=== PATIENT | female | born 1980 | race Caucasian/White ===

== ENCOUNTER 2020-03-18 13:41 | Outpatient (CLI) | payer OTHER ==
[2020-03-18] MEDS ORDERED: GADOBUTROL 10 MMOL/10 ML VIAL ONE (14:58)
--- NOTE | 2020-03-18 17:15 | MRI Report ---
PROCEDURE: Knee RT W/WO INDICATIONS: CHRONIC CYST RT KNEE CONTRAST: IV CONTRAST: Gadavist ml: 9 TECHNIQUE: Noncontrast sagittal PD fast spin echo and T2 fast spin echo with fat saturation, sagittal 3-D spoile d GE with fat saturation; coronal T1 spin echo and PD fast spin echo with fat saturation, and axial T 1 spin echo and PD fast spin echo with fat saturation through the knee. Post-contrast axial, coronal , and sagittal T1 spin echo with fat saturation through the knee. COMPARISON: None. FINDINGS: Image quality: Excellent. Menisci: The medial and lateral menisci demonstrate normal morphology and internal signal. The meni scal root ligaments appear intact. Cruciate ligaments: The anterior and posterior cruciate ligaments appear intact. Medial structures: The medial collateral ligament appears intact. The posterior oblique ligament, s emimembranosus tendon insertions, and oblique popliteal ligament, and meniscocapsular junction appear intact. Visualized portions of the pes anserinus tendons appear normal. No abnormal bursal fluid. Lateral structures: The lateral collateral ligament, long and short heads of the biceps femoris tend on appear intact. The popliteus tendon appears normal; the popliteofibular ligament appears intact. The posterosuperior and anteroinferior popliteomeniscal fascicles appear intact. The arcuate and fa bellofibular ligaments appear intact, around the lateral inferior geniculate artery. Iliotibial band appears normal. Anterior structures: There is a 5.3 x 3.9 x 5.9 cm slightly lobulated and heterogeneously T2 hyperin tense and T1 hypointense structure with extensive internal T1 and T2 hypointense signal involving ant eromedial right knee soft tissue and is superficial to the medial patellar retinaculum. After IV cont rast infusion, no definite internal contrast enhancement is noted. The quadriceps and patellar tendon s appear intact. Patellar alignment is normal. No femoral trochlear dysplasia or ventral trochlear prominence. No edema in the infrapatellar fat pad. Bones and cartilage: No suspicious osseous enhancement. No bone marrow contusions or fractures. Th e cartilage of the medial and lateral femorotibial compartments, as well as the patellofemoral compar tment, appears normal in thickness. Joint space: There is physiologic knee joint fluid. No Woods?s cyst. Normal appearing synovial pli are incidentally noted. No suspicious soft tissue enhancement. IMPRESSION: 1. 5.3 x 3.9 x 5.9 cm slightly lobulated and heterogeneously T2 hyperintense and T1 hypointense struc ture involving soft tissue along the anteromedial right knee superficial to the medial patellar retin aculum and show no definite internal enhancement. Internal T1 and T2 hypointense signal is seen. Find ing may represent a large hemorrhagic cyst in this area. Cystic neoplasm cannot be entirely excluded. Consider excision of this lesion for more definitive diagnosis. 2. No marrow signal abnormality. No acute fracture or dislocation. No abnormal intraosseous enhanceme nt. 3. Cruciate ligaments are intact. 4. No evidence of focal meniscal tear. 5. Medial and lateral patellar retinaculum are intact. Medial and lateral collateral ligaments are in tact. Reviewed by: Mauri Alberto MD on 03/18/2020 5:14 PM PDT Approved by: Mauri Alberto MD on 03/18/2020 5:14 PM PDT Station ID: [id number]
== END 2020-03-18 13:42 | disposition home or self-care (01) ==
LOC: DI 13:41
DX: R93.6 Abnormal findings on diagnostic imaging of limbs (principal); R93.89 Abnormal findings on diagnostic imaging of other specified body structures
CPT/HCPCS: 73723; A9585

== ENCOUNTER 2020-03-20 17:47 | Emergency (ER) | payer OTHER ==
[2020-03-20] MEDS ORDERED: BUFFERED LIDOCAINE 10 ML SYRINGE SUBQ STA (17:57)
--- NOTE | 2020-03-20 17:58 | ED Physician Documentation ---
PD HPI WOUND RECHECK - Stated complaint Stated Complaint: RT KNEE DRAINING - Chief complaint Chief Complaint: Wound - Histroy obtained from History obtained from: Patient - Additional information Additional information: She is had a lump on her knee since she was a little girl. More recently her dog knocked it and became inflamed. Had an MRI done a couple of days ago showing cystic structure of unclear etiology. Now it is draining cottage cheesy fluid. Review of Systems Constitutional: reports: Reviewed and negative Throat: reports: Reviewed and negative Respiratory: reports: Reviewed and negative PD PAST MEDICAL HISTORY - Present Medications Home Medications: Ambulatory Orders Medication Instructions Recorded Confirmed Cephalexin [Keflex] 500 mg PO Q6H #20 capsule 03/20/20 - Allergies Allergies/Adverse Reactions: Allergies Allergy/AdvReac Type Severity Reaction Status Date / Time azithromycin [From Zithromax] Allergy Hives Verified 03/20/20 17:50 PD ED PE NORMAL - Vitals Vital signs reviewed: Yes - General General: Alert and oriented X 3, No acute distress - Extremities Extremities: Other (There is a large pointed cyst on the anteromedial right knee) - Neuro Neuro: Alert and oriented X 3, Normal speech Results - Vitals Vitals: Vital Signs - 24 hr 03/20/20 03/20/20 17:50 18:09 Temperature 36.4 C L Heart Rate 90 93 Respiratory 16 16 Rate Blood Pressure 126/85 H 137/96 H O2 Saturation 100 100 Oxygen O2 Source Room air Procedures - Abscess I&D (location) R knee secbaceous cyst Preparation: Chlorhexadine, Lidocaine 1% Incision: Incised with scalpel, Purulent drainage, Culture obtained. No: Packed Other: Pt tolerated well, Dressing applied, Antibiotic prescribed PD MEDICAL DECISION MAKING - ED course ED course: The history and description and MRI findings and physical findings suggest that this is a large sebaceous cyst that has become infected. An incision and drainage was done and a very large amount of sebaceous material was drained. Departure - Departure Disposition: 01 Home, Self Care Clinical Impression: Sebaceous cyst Condition: Good Record reviewed to determine appropriate education?: Yes Instructions: ED Cyst Sebaceous Infec IandD Prescriptions: Cephalexin [Keflex] 500 mg PO Q6H #20 capsule Comments: Examination of the contents suggest that this is a sebaceous cyst. [place] you to a general or orthopedic surgeon for definitive excision.
[2020-03-20 18:10] VITALS: BP 137/96
[2020-03-20] MEDS ORDERED: cephALEXin 250 MG CAPSULE PO STA (18:14)
== END 2020-03-20 18:36 | disposition home or self-care (01) ==
LOC: ED 17:47
DX: L72.3 Sebaceous cyst (principal)
CPT/HCPCS: 10060; 87070; 87077; 87181; 87205; 99283; A9270

== ENCOUNTER 2020-06-25 19:51 | Outpatient (CLI) | payer OTHER | END 2020-06-25 19:52 | disposition home or self-care (01) | LOC: COV 19:51 | PROVIDERS: ATTEND Surgery | DX: Z01.812 Encounter for preprocedural laboratory examination (principal); Z20.822 Contact with and (suspected) exposure to COVID-19; L72.0 Epidermal cyst ==

== ENCOUNTER 2020-06-29 08:22 | Day surgery (SDC) | payer OTHER ==
[2020-06-29 08:44] LABS: HCG UR QUAL NEGATIVE
[2020-06-29] MEDS ORDERED: ceFAZolin 2 GM/50 ML 2 GM/50 ML BAG IV ONE (08:49)
[2020-06-29] MEDS ORDERED: LACTATED RINGERS 1,000 ML IV ONE ×2 (09:00→11:16)
--- NOTE | 2020-06-29 09:17 | ANESTHESIA ---
Pre-Anesthesia VS, & Labs - Diagnosis right knee cyst - Procedure excision right knee cyst Vital Signs: Temp Pulse Resp BP Pulse Ox 36 C L 88 18 158/108 H 99 06/29/20 08:42 06/29/20 08:42 06/29/20 08:42 06/29/20 08:42 06/29/20 08:42 Height: 5 ft 4 in Weight (kg): 92 kg Body Mass Index: 34.8 BMI Classification: Obese - NPO >8 hours - Is Patient ?: No Home Medications and Allergies Home Medications: Ambulatory Orders Atorvastatin [Lipitor] 40 mg PO DAILY 06/21/20 Esomeprazole Magnesium [Nexium] 20 mg PO DAILY 06/21/20 Metformin HCl [Glucophage] 1,000 mg PO BID 06/21/20 Telmisartan [Micardis] 40 mg PO DAILY 06/21/20 Atorvastatin [Lipitor] 40 mg PO DAILY 06/21/20 Esomeprazole Magnesium [Nexium] 20 mg PO DAILY 06/21/20 Metformin HCl [Glucophage] 1,000 mg PO BID 06/21/20 Telmisartan [Micardis] 40 mg PO DAILY 06/21/20 Allergies/Adverse Reactions: Allergies Allergy/AdvReac Type Severity Reaction Status Date / Time azithromycin [From Zithromax] Allergy Hives Verified 03/20/20 17:50 Anes History & Medical History - Anesthetic History Family history of Anesthesia Complications: Denies Family history of Malignant Hyperthermia: Denies - Medical History Cardiovascular: reports: Hypertension, High cholesterol Pulmonary: reports: Sleep apnea Gastrointestinal: reports: GERD, Ulcers Urinary: reports: None Neuro: reports: None Musculoskeletal: reports: None Endocrine/Autoimmune: reports: Type 2 diabetes Skin: reports: Psoriasis Smoking Status: Current every day smoker (vapes daily) History of Cancer?: No - Surgical History Eyes Ears Nose Throat (EENT): Cataracts Gynecologic: section Exam General: Alert Dental: WNL Mouth Openin Fingerbreadth Neck Mobility: Normal Mallampati classification: III Thyromental Distance: 4-6 cm Respiratory: Lungs clear Cardiovascular: Regular rate Abdomen: Normal bowel sounds Extremities: No clubbing Neurological: Normal gait Mental/Cognitive Status: Alert/Oriented X3 Cognitive Status: Within normal limits Plan Anesthesia Type: General, MAC Consent for Procedure(s) Verified and Reviewed: Yes Code Status: Attempt Resuscitation ASA classification: 2-Mild systemic disease Is this case an emergency?: No
[2020-06-29] MEDS ORDERED: NALOXONE 0.4 MG/ML VIAL IVP PRN (09:56)
[2020-06-29] MEDS ORDERED: fentaNYL 100 MCG/2 ML VIAL IVP PRN (09:56)
[2020-06-29] MEDS ORDERED: ALBUTEROL NEB 2.5 MG/3 ML INH PRN (09:56)
[2020-06-29] MEDS ORDERED: ONDANSETRON 4 MG/2 ML VIAL IVP PRN (09:56)
[2020-06-29] MEDS ORDERED: ePHEDrine 50 MG/ML VIAL IVP PRN (09:56)
[2020-06-29] MEDS ORDERED: diphenhydrAMINE INJ 50 MG/ML VIAL IVP PRN (09:56)
[2020-06-29] MEDS ORDERED: HYDROmorphone 0.5 MG/0.5 ML SYRINGE IVP PRN (09:56)
[2020-06-29] MEDS ORDERED: MORPHINE 2 MG/ML CARPUJECT IVP PRN (09:56)
[2020-06-29] MEDS ORDERED: ATROPINE ABBOJECT 1 MG/10 ML SYRINGE IVP PRN (09:56)
[2020-06-29] MEDS ORDERED: LACTATED RINGERS 1,000 ML IV SCH (10:00)
[2020-06-29] MEDS ORDERED: BUPIVACAINE 0.25% PF 30 ML VIAL ONE (10:17)
[2020-06-29] MEDS ORDERED: LIDOCAINE 1% 50 ML MDV ONE (10:17)
[2020-06-29] MEDS ORDERED: PROPOFOL 200 MG/20 ML VIAL IVP ONE (10:21)
[2020-06-29] MEDS ORDERED: MIDAZOLAM 2 MG/2 ML VIAL ONE (10:21)
[2020-06-29] MEDS ORDERED: LIDOCAINE-MPF 2% 5 ML VIAL ONE (10:21)
[2020-06-29] MEDS ORDERED: fentaNYL 100 MCG/2 ML VIAL ONE ×2 (10:21→11:02)
--- NOTE | 2020-06-29 10:23 | HISTORY & PHYSICAL EXAMINATION ---
Chief Complaint - Chief Complaint Chief Complaint: right knee cyst History of Present Illness - History of Present Illness HPI Comment/Other: right knee cyst for many years with recent rupture and inflammation. Currently improved History - Past Medical History Cardiovascular: reports: Hypertension, High cholesterol Respiratory: reports: Sleep apnea Neuro: reports: None Endocrine/Autoimmune: reports: Type 2 diabetes GI: reports: GERD, Ulcers : reports: None HEENT: reports: None Psych: reports: Depression Musculoskeletal: reports: None Derm: reports: Psoriasis MRSA Hx?: No - Past Surgical History /[employer]: reports: section HEENT: reports: Cataracts Meds/Allgy - Home Medications Home Medications: Ambulatory Orders Medication Instructions Recorded Confirmed Atorvastatin [Lipitor] 40 mg PO DAILY 06/21/20 06/29/20 Esomeprazole Magnesium [Nexium] 20 mg PO DAILY 06/21/20 06/29/20 Metformin HCl [Glucophage] 1,000 mg PO BID 06/21/20 06/29/20 Telmisartan [Micardis] 40 mg PO DAILY 06/21/20 06/29/20 - Allergies Allergies/Adverse Reactions: Allergies Allergy/AdvReac Type Severity Reaction Status Date / Time azithromycin [From Zithromax] Allergy Hives Verified 03/20/20 17:50 Review of Systems - Constitutional Constitutional: reports: Fatigue (10 pt ros as above otherwise unremarkable) Exam - Vital Signs Reviewed Vital Signs: Yes Vital Signs: Vital Signs x48h Temp Pulse Resp BP Pulse Ox 06/29/20 08:42 36 C L 88 18 158/108 H 99 - Physical Exam General Appearance: positive: No acute distress, Alert, Mild distress Eyes Bilateral: positive: Normal inspection, PERRL, EOMI ENT: positive: No signs of dehydration Neck: positive: No JVD, Trachea midline Respiratory: positive: No respiratory distress Cardiovascular: positive: Regular rate & rhythm Abdomen: positive: Non-tender, No distention Extremities: positive: Full ROM, Other (right knee cyst present) Neurologic/Psychiatric: positive: Oriented x3 Conclusion/Plan - Problem List (1) Sebaceous cyst Conclusion/Plan: she has a very large epidermal inclusion cyst right knee. plan excision. parq held and consent obtained
[2020-06-29] MEDS ORDERED: BUPIVACAINE 0.25% PF 30 ML VIAL SUBQ ONE ×2 (10:54)
[2020-06-29] MEDS ORDERED: ONDANSETRON 4 MG/2 ML VIAL ONE (11:22)
[2020-06-29] MEDS ORDERED: HYDROcod/ACETAM 10 MG/325 MG TABLET PO PRN (11:23)
[2020-06-29] MEDS ORDERED: HYDROmorphone 0.5 MG/0.5 ML SYRINGE ONE (11:37)
--- NOTE | 2020-06-29 11:47 | OPERATIVE REPORT ---
Operative Report - General Procedure Date: 06/29/20 Planned Procedure: excision 5 cm epidermal inclusion cyst right knee Pre-Op Diagnosis: eic right knee Procedure Performed: excision eic right knee Post Op Diagnosis: same - Procedure Note Primary Surgeon: angela milner Anesthesia Technique: General LMA, Local Pathology: not sent. benign Estimated Blood Loss (mL): 5 Complications: none
[2020-06-29 12:13] VITALS: BP 110/86
[2020-06-29] MEDS ORDERED: HYDROcod/ACETAM 10 MG/325 MG TABLET ONE (12:14)
--- NOTE | 2020-06-29 12:19 | OPERATIVE REPORT ---
DATE OF SERVICE: 06/29/2020 Physician: Howie Culp MD PREOPERATIVE DIAGNOSIS: A 5 cm epidermal inclusion cyst, right medial knee. POSTOPERATIVE DIAGNOSIS: A 5 cm epidermal inclusion cyst, right medial knee. PROCEDURES 1. Excision of epidermal inclusion cyst. 2. A 5 cm intermediate repair. SURGEON: Howie Culp MD DATA ENTRY ANALYST: None. ANESTHESIA 1. Laryngeal mask anesthesia. 2. Local anesthesia with Marcaine. COMPLICATIONS: None. ESTIMATED BLOOD LOSS: Less than 5 mL SPECIMEN: Clinically, benign, not sent for pathology. INDICATIONS FOR PROCEDURE: The patient is a 39-year-old who had a very large epidermal inclusion cyst, right medial knee for many years. Approximately 2 months ago it became inflamed, ruptured and drained. She presents for excision. Risks discussed, alternatives discussed. All questions answered and consent obtained. DETAILS OF THE PROCEDURE: The patient was properly identified and brought to the operating room and placed in supine position. Laryngeal mask anesthesia was induced. She was prepped and draped in a sterile fashion, given preoperative antibiotics. A vertical elliptical 5 cm incision was made around the cyst. The cyst was removed in its entirety with careful sharp dissection. Hemostasis was ensured with cautery. Intermediate repair was then performed. Buried interrupted subdermal 3-0 Vicryl sutures were placed. The skin was closed with a running 4-0 Monocryl subcuticular suture. Given the location, an additional 2 interrupted central 3-0 nylon sutures were placed. Steri-Strips and dressing were applied. She tolerated the procedure well. TD: 06/29/2020 11:[address] [facility]
--- NOTE | 2020-06-29 14:57 | ANESTHESIA POST OP EVALUATION ---
Anesthesia Post Eval - Post Anesthesia Eval Vitals: Last Vital Signs Temp 36.3 C L 06/29/20 12:11 Pulse 75 06/29/20 12:11 Resp 14 06/29/20 12:11 BP 110/86 H 06/29/20 12:11 Pulse Ox 97 06/29/20 12:11 CV Function Including HR & BP: positive: Stable Pain Control: positive: Satisfactory Nausea & Vomiting: positive: Negative Mental Status: positive: Baseline Respiratory Status: Airway Patent Hydration Status: Satisfactory
== END 2020-06-29 08:23 | disposition home or self-care (01) ==
LOC: SDS 08:22
PROVIDERS: ATTEND Surgery
DX: L72.0 Epidermal cyst (principal); E11.9 Type 2 diabetes mellitus without complications; G47.30 Sleep apnea, unspecified; E66.9 Obesity, unspecified; Z68.34 Body mass index [BMI] 34.0-34.9, adult; I10 Essential (primary) hypertension; Z79.84 Long term (current) use of oral hypoglycemic drugs; F17.290 Nicotine dependence, other tobacco product, uncomplicated
CPT/HCPCS: 11406; 12032; 81025; A9270; J0690; J1170; J7120